=== PATIENT | female | born 2000 | race Two or more races ===

== ENCOUNTER 2022-11-17 23:46 | Emergency (ER) | payer OTHER ==
[2022-11-18] MEDS ORDERED: Ibuprofen 800 MG Tab PO ONE (00:37)
[2022-11-18] MEDS ORDERED: Acetaminophen 500 MG Tab PO ONE (00:37)
== END 2022-11-18 01:35 | disposition home or self-care (01) ==
LOC: FB.ED 23:46
DX: S86.912A Strain of unspecified muscle(s) and tendon(s) at lower leg level, left leg, initial encounter (principal); S80.02XA Contusion of left knee, initial encounter; V47.5XXA Car driver injured in collision with fixed or stationary object in traffic accident, initial encounter; Y92.410 Unspecified street and highway as the place of occurrence of the external cause
CPT/HCPCS: 73562; 99283; A9270